=== PATIENT | male | born 1970 | race Caucasian/White ===

== ENCOUNTER 2018-01-28 09:02 | Day surgery (SDC) | payer BC ==
[~2018-01-28 09:02] MED LIST: Buffered Lidocaine 0.9% SYRIN* 5 ML/SYR SYRINGE INTRADERM ONE; Dexamethasone IV* 4 MG/ML 1 ML (4 MG) IV SLOW PU ONE; Famotidine IV* 10 MG/ML 2 ML (20 mg) IV ONE
[2018-01-28] MEDS ORDERED: Dexamethasone IV* 4 MG/ML 1 ML (4 MG) ONE (09:21)
[2018-01-28] MEDS ORDERED: Famotidine IV* 10 MG/ML 2 ML (20 mg) ONE (09:21)
[2018-01-28] MEDS ORDERED: ceFAZolin 2 GM PREMIX (*) 2 GM/50 ML BAG IVPB ONE (09:22)
[2018-01-28] MEDS ORDERED: Ondansetron INJ* 2 MG/ML VIAL ONE (10:49)
[2018-01-28] MEDS ORDERED: Ketorolac INJ* 30 MG/ML 1 ML VIAL ONE (10:49)
[2018-01-28] MEDS ORDERED: fentaNYL* 50 MCG/ML 2 ML VIAL (100 MCG VIAL) ONE ×3 (10:49→14:14)
[2018-01-28] MEDS ORDERED: Propofol* 10 MG/ML 20 ML BTL IV PUSH ONE (10:49)
[2018-01-28] MEDS ORDERED: Lidocaine 2% PF * 5 ML VIAL ONE (10:49)
[2018-01-28] MEDS ORDERED: Midazolam* 1 MG/ML 5 ML VIAL (5 MG) ONE (10:49)
[2018-01-28] MEDS ORDERED: Ropivacaine (OR use only) 2 MG/ML 10 ML ONE (11:20)
[2018-01-28] MEDS ORDERED: Lidocaine 1% MPF wEPI 200,000* 30 ML SDV ONE (11:20)
[2018-01-28] MEDS ORDERED: Lidocaine 1% INJ* 10 MG/ML 30 ML SDV ONE (11:20)
[2018-01-28] MEDS ORDERED: Ondansetron INJ* 2 MG/ML VIAL IV PRN (11:30)
[2018-01-28] MEDS ORDERED: HYDROmorphone INJ* 0.5 MG/0.5 ML SYRINGE IV PRN (11:30)
[2018-01-28] MEDS ORDERED: fentaNYL* 50 MCG/ML 2 ML VIAL (100 MCG VIAL) IV PRN (11:30)
[2018-01-28] MEDS ORDERED: oxyCODONE/Acetamin 5/325 MG* TAB PO PRN (11:30)
[2018-01-28] MEDS ORDERED: Naloxone* 0.4 MG/ML 1 ML VIAL IV PRN (11:30)
[2018-01-28] MEDS ORDERED: DiMENhydriNATE IV* 50 MG/ML VIAL IV PUSH PRN (11:30)
[2018-01-28] MEDS ORDERED: Glycopyrrolate IV* 0.2 MG/ML 1 ML VIAL ONE (11:56)
--- NOTE | 2018-01-28 13:16 | OP ---
Operative Report - Blank - Operative Report Date of Operation: 01/28/18 Note: Brief Operative Note Preoperative Dx: Right inguinal hernia and umbilical hernia. Postoperative Dx: Same. Procedure: Right inguinal hernia repair with mesh and umbilical hernia repair. Anesthesia: GET. Surgeon: MD Vickie. Assist: CAROLINA Chang and KARI Cat. EBL: Less than 50. Fluids: 1000 LR. Drain: None. Specimen: None. Findings: Dictated.
[2018-01-28] MEDS ORDERED: oxyCODONE/Acetamin 5/325 MG* TAB ONE (14:14)
[2018-01-28 15:09] VITALS: BP 137/84
--- NOTE | 2018-01-29 02:17 | OP ---
DATE OF OPERATION: 01/28/18 - [facility] DATE OF : 70 SURGEON: Xander Johnston MD [place] TECHNICIAN: CAROLINA Shepherd ANESTHESIOLOGIST: Young Thayer MD ANESTHESIA: General endotracheal. PRE-OP DIAGNOSIS: Right inguinal hernia and umbilical hernia. POST-OP DIAGNOSIS: Right inguinal hernia and umbilical hernia. OPERATIVE PROCEDURE: Laparoscopic repair of right inguinal hernia and open repair of umbilical hernia. ESTIMATED BLOOD LOSS: Minimal. IV FLUIDS: Crystalloids. SPECIMENS: None. DRAINS: None. COMPLICATIONS: None. COUNTS: The instrument, needle, and sponge counts were correct. DESCRIPTION OF PROCEDURE: The patient was brought to the operating room and placed on table supine. Sequential compression devices were placed on both lower extremities. General anesthesia was administered. Tripp catheter was placed. The right groin was examined and the hernia was found to be reduced. A sterile prep and drape was performed and time-out was performed. He did receive appropriate intravenous antibiotics. Local anesthetic was infiltrated at the incision sites. A curvilinear infraumbilical incision was created. Subcutaneous tissues were divided with cautery. Anterior rectus fascia was identified to the right of midline and transversely was incised. Retraction of the muscle laterally and then inserting a preperitoneal balloon dissector down to the pubic symphysis. This was insufflated under direct visualization, then removed and replaced with a 12- mm blunt port. Two 5-mm bladeless trocars were placed in the lower midline. The dissection then proceeded from the midline laterally identifying a direct inguinal hernia, which contained fat and was completely reduced as well as an indirect inguinal hernia. During the dissection of the indirect inguinal hernia, the sac was torn. The sac was completely dissected off of the cord structures and the sac was divided and the distal portion was allowed to retract into the scrotum. Proximally, the defect in the peritoneum was closed with endoscopic clips. The repair was then performed with a Medtronic ProGrip mesh, which was fashioned from a 10 x 15 cm piece of mesh and placed into the preperitoneal space to cover the direct and indirect spaces. The mesh was adequately positioned. As the space was inspected, there was noted to be an additional rent in the peritoneum, which was closed with additional clips. Subsequently, the umbilical port was removed and the umbilical hernia was addressed. The umbilical stalk was dissected free from the anterior abdominal wall. A 1 cm defect was identified. Peritoneal cavity was entered through this and the 12-mm blunt port was inserted and carbon dioxide was insufflated to a pressure of 15 mmHg. The peritoneum could be inspected in the right groin. One small additional rent was noted in the peritoneum and this was closed with endoscopic clips through 5-mm port placed into the abdominal cavity through the previous incision. Having completed this inspection and closure of the peritoneum, the ports were removed and carbon dioxide was released. The umbilical hernia was closed with 0 Ethibond suture in [id number] fashion. The fascial defect from the hernia repair was closed with 0 Vicryl in interrupted fashion. The umbilical stalk was reapproximated to the anterior abdominal wall with 3-0 Vicryl and then the skin incisions were closed with 4-0 Monocryl in a subcuticular fashion and Steri-Strips were applied. The patient tolerated this procedure well. He was extubated and transferred to recovery room in a stable condition. [id number] #: [id number]
== END 2018-01-28 15:53 | disposition home or self-care (01) ==
LOC: OR 09:02
PROVIDERS: ATTEND Surgery
DX: K40.90 Unilateral inguinal hernia, without obstruction or gangrene, not specified as recurrent (principal); K42.9 Umbilical hernia without obstruction or gangrene
CPT/HCPCS: A9270-GY; J0690; J1100; J1885; J2001; J2250; J2405; J2704; J2795; J3010